=== PATIENT | female | born 1975 | race Caucasian/White ===

== ENCOUNTER 2021-04-03 04:27 | Day surgery (SDC) | payer OTHER ==
[2021-04-02 10:51] VITALS: BMI 29.0
[2021-04-03] MEDS ORDERED: oxyCODONE HCL 5 MG TABLET PO PRN (15:37)
[2021-04-03] MEDS ORDERED: PROMETHAZINE HCL 25 MG/1 ML VIAL IVPUSH PRN (15:37)
[2021-04-03] MEDS ORDERED: ONDANSETRON 4 MG/2 ML VIAL IVPUSH PRN (15:37)
[2021-04-03] MEDS ORDERED: MIDAZOLAM HCL 2 MG/2 ML SINGLE DOSE VIAL ONE (15:38)
[2021-04-03] MEDS ORDERED: PROPOFOL 20 ML ONE ×2 (15:38)
[2021-04-03] MEDS ORDERED: SUCCINYLCHOLINE CHLORIDE 200 MG/10 ML SYRINGE ONE (15:38)
[2021-04-03] MEDS ORDERED: ceFAZolin SODIUM 1 GM VIAL IVPB ONE (15:57)
[2021-04-03] MEDS ORDERED: LIDOCAINE HCL 1%, 10 MG/ML (20ML VIAL) NR ONE (16:00)
[2021-04-03 17:52] VITALS: BP 126/80; PULSE 80; TEMP 97.2
== END 2021-04-03 17:45 | disposition home or self-care (01) ==
LOC: JASU-SURG 04:27
PROVIDERS: ATTEND Surgery
PROC: 0HBX0ZX Excision of Left Nipple, Open Approach, Diagnostic (ICD-10-PCS; principal; 2021-04-03 12:00)
DX: C50.012 Malignant neoplasm of nipple and areola, left female breast (principal)
CPT/HCPCS: 81025; 88307-TC; 94760